=== PATIENT | female | born 1985 | race African-American/Black ===

== ENCOUNTER 2016-07-29 05:04 | Day surgery (SDC) | payer OTHER ==
[2016-07-22 13:37] VITALS: BMI 31.5
--- NOTE | 2016-07-29 04:43 | HP ---
History & Physical Update - History History: No Change - Physical Physical: No Change - Assessment Assessment: No Change - Plan Plan: No Change
[~2016-07-29 05:04] MED LIST: ACETAMINOPHEN 325 MG TABLET (FP) PO PRN; IBUPROFEN 400 MG TABLET (FP) PO PRN
[2016-07-29] MEDS ORDERED: SUCCINYLCHOLINE CHLORIDE 200 MG/10 ML VIAL ONE (07:55)
[2016-07-29] MEDS ORDERED: MIDAZOLAM HCL 2 MG/2 ML SINGLE DOSE VIAL ONE (07:55)
[2016-07-29] MEDS ORDERED: PROPOFOL 20 ML ONE (07:55)
[2016-07-29] MEDS ORDERED: ROCURONIUM BROMIDE 50 MG/5 ML VIAL ONE (07:58)
[2016-07-29] MEDS ORDERED: DEXAMETHASONE SOD PHOSPHATE 4 MG/1 ML VIAL ONE (08:18)
[2016-07-29] MEDS ORDERED: ceFAZolin SODIUM 1 GM VIAL ONE (08:20)
[2016-07-29] MEDS ORDERED: ceFAZolin SODIUM 1 GM VIAL IVPB ONE (08:25)
[2016-07-29] MEDS ORDERED: KETOROLAC TROMETHAMINE 30 MG/1 ML VIAL ONE (08:41)
[2016-07-29] MEDS ORDERED: GLYCOPYRROLATE 0.2 MG/1 ML VIAL ONE (08:58)
[2016-07-29] MEDS ORDERED: NEOSTIGMINE METHYLSULFATE 0.5 MG/ML - 10 ML MDV ONE (08:58)
--- NOTE | 2016-07-29 09:29 | OP ---
Operative Note - Note: Operative Date: 07/29/16 Pre-Operative Diagnosis: voluntary sterilization Operation: bilateral laparoscopic salpingectomy Surgeon: Jesusita Romero [employer] Coach: Sunshine Orlando Anesthesiologist/RICE DRYER MECHANIC: Isrrael Torres Anesthesia: General Specimens Removed: bilateral fallopian tube Estimated Blood Loss (mls): 20 Drains, Volume Out (mls): 75 (pagan) Fluid Volume Replaced (mls): 1,100 Operative Report Dictated: Yes
[2016-07-29] MEDS ORDERED: PROMETHAZINE HCL 25 MG/1 ML VIAL IVPUSH PRN (09:32)
[2016-07-29] MEDS ORDERED: oxyCODONE HCL 5 MG TABLET PO PRN (09:32)
--- NOTE | 2016-07-29 09:34 | SURG ---
Surgery Resident Assistant Note Resident Assistant: Sunshine Orlando PA-C Date of Service: 07/29/16 Diagnosis: voluntary sterilization Procedure: bilateral laparoscopic salpingectomy I was present for the entirety of the operative procedure. For further detail, please refer to operative report. Visit type - Case Type Case Type: Scheduled Admission - Emergency Emergency Visit: No - New patient This patient is new to me today: Yes Date on this admission: 07/29/16 - Critical Care Critical Care patient: No
[2016-07-29] MEDS ORDERED: LACTATED RINGERS SOLUTION 1,000 ML IV SCH (09:45)
[2016-07-29 11:19] VITALS: TEMP 98
[2016-07-29] MEDS ORDERED: oxyCODONE HCL 5 MG TABLET ONE (12:36)
[2016-07-29 14:07] VITALS: BP 110/73; PULSE 97
--- NOTE | 2016-07-30 13:15 | OP ---
DATE OF OPERATION: 07/29/2016 PREOPERATIVE DIAGNOSIS: Voluntary sterilization. OPERATION: Laparoscopic bilateral salpingectomy. SURGEON: Malcolm Harrison MD SECURITY ATTENDANT: AURELIO Gordillo ANESTHESIOLOGIST: Isrrael Torres MD ANESTHESIA: General. SPECIMEN REMOVED: Bilateral fallopian tubes. Normal tubes and ovaries seen. Some liver adhesions noted. ESTIMATED BLOOD LOSS: 20 mL. PROCEDURE: The patient was taken to the operating room, placed in dorsal lithotomy position, prepped and draped in usual sterile fashion. A timeout was performed in accordance with hospital regulation. De La Rosa catheter was inserted into the bladder. Attention was then drawn to the umbilicus where a 5-mm umbilical incision was made. Veress needle was inserted into the cavity. Approximately 3-4 L was insufflated in the cavity. Two incisions were made in the left lower abdomen and right lower abdomen. Under direct visualization trocars were inserted. A grasper and LigaSure were then introduced, and left tube was grasped, and cautery of the left fallopian tube down to the isthmic area of the uterus was then done. Tube was then removed. Right tube was then grasped and LigaSure was used to cauterize and cut the fallopian tube on the right side. That fallopian tube was removed. Hemostasis was achieved. Estimated blood loss 20 mL. All instruments were removed. CO2 was removed from the abdomen. Incisions were then closed using 4-0 Biosyn suture in a subcuticular fashion. Wound was washed and dressed. Patient tolerated the procedure well. MALCOLM HARRISON M.D. [id number]
--- NOTE | 2016-07-30 14:03 | PATH ---
Surgical Pathology Report Patient Name: VIOLETA ONOFRE [facility]. Rec. #: [id number] /Age/Gender: 1985 (Age: 31) / F Account: [id number] Location: [facility] SURGICAL Taken: 07/29/2016 Received: 07/29/2016 Reported: 07/30/2016 Physicians: Jesusita Romero M.D. Specimen(s) Received A: RIGHT FALLOPIAN TUBE B: LEFT FALLOPIAN TUBE Clinical History Voluntary sterilization Final Diagnosis A. RIGHT FALLOPIAN TUBE, SALPINGECTOMY: FULL LUMINAL PORTION OF FALLOPIAN TUBE, INCLUDING FIMBRIATED END. B. LEFT FALLOPIAN TUBE, SALPINGECTOMY: FULL LUMINAL PORTION OF FALLOPIAN TUBE, INCLUDING FIMBRIATED END. BENIGN SEROUS PARATUBAL CYST PRESENT. Electronically Signed Humphrey Diaz M.D. Gross Description A. Received in formalin labeled "right fallopian tube," is a 5.8 cm in length fimbriated portion of fallopian tube. The outer surface is weiss-pink and smooth. Sectioning reveals an unremarkable lumen. Mash Preparatory Operator sections are submitted in 2 cassettes as follows: 1-fimbria; 3-mohum-zwiefpgr of fallopian tube. B. Received in formalin labeled "left fallopian tube," is a 9 cm in length fimbriated portion of fallopian tube. There is a 1.0 cm in greatest dimension paratubal cyst attached to the fimbria. The outer surface of the fallopian tube is weiss-pink and smooth. Sectioning reveals an unremarkable lumen. Mash Preparatory Operator sections are submitted in 2 cassettes as follows: 1-fimbria with paratubal cyst; 5-hwcfy-tgpdswex of fallopian tube. /07/29/2016 [facility]07/29/2016
== END 2016-07-29 14:28 | disposition home or self-care (01) ==
LOC: JASU-SURG 05:04
PROVIDERS: ATTEND Obstetrics & Gynecology
PROC: 0U574ZZ Destruction of Bilateral Fallopian Tubes, Percutaneous Endoscopic Approach (ICD-10-PCS; principal; 2016-07-29 08:00)
DX: Z30.2 Encounter for sterilization (principal)
CPT/HCPCS: 84703; 88302-TC; 94760

== ENCOUNTER 2017-06-23 22:15 | Emergency (ER) | payer OTHER ==
[2017-06-23 22:39] VITALS: BP 123/63; PULSE 117; BMI 36.1
--- NOTE | 2017-06-23 22:52 | PDOC ---
History of Present Illness - General Chief Complaint: Cold Symptoms Stated Complaint: HEADACHE/PAIN Time Seen by Provider: 06/23/17 22:45 History Source: Patient - History of Present Illness Initial Comments: 06/23/17 23:04 Best Contact: Pmhx:N/A Pshx: B/L tubal ligation Allergies: NKDA LMP: 06/18/2017 06/24/17 00:20 32-year-old female presents to the emergency department complaining of sore throat, general malaise, frontal forehead headache, fever/chills for approximately 42 hours. Patient's been taken Tylenol with somewhat relief. Last dose 1600 hrs. today. Patient denies dizziness, lightheadedness, facial pains, rhinorrhea, nasal congestion, earaches, neck pain/stiffness, back pains, chest pain, shortness of breath, cough, abdominal pains, urinary symptoms. Patient states she's having difficulty swallowing due to the pain and hasn't been drinking enough fluids today. 06/24/17 00:22 Timing/Duration: reports: other (x2d) Past History - Past Medical History Allergies/Adverse Reactions: Allergies Allergy/AdvReac Type Severity Reaction Status Date / Time No Known Drug Allergies Allergy Verified 03/09/17 16:32 Home Medications: Ambulatory Orders Oseltamivir Phosphate [Tamiflu Oral Suspension -] 75 mg PO BID #112.5 ml Anemia: Yes Asthma: No Cancer: No Cardiac Disorders: No CVA: No COPD: No CHF: No DVT: No Dementia: No Diabetes: No GI Disorders: No Disorders: No HTN: No Hypercholesterolemia: No Liver Disease: No Seizures: No Thyroid Disease: No - Reproductive History Therapeutic (s) & number: Yes - Immunization History Td Vaccination: Yes TDAP Vaccination: Yes Immunization Up to Date: Yes - Suicide/Smoking/Psychosocial Hx Smoking Status: No Smoking History: Never smoked Have you smoked in the past 12 months: No Number of Cigarettes Smoked Daily: 0 Information on smoking cessation initiated: No Hx Alcohol Use: No Drug/Substance Use Hx: No Substance Use Type: None Hx Substance Use Treatment: No Review of Systems - Review of Systems Able to Perform ROS?: Yes Comments:: 06/23/17 22:59 CONSTITUTIONAL: +fever/chills, generalized weakness, malaise Absent:diaphoresis, loss of appetite HEENT: +throat pain Absent: rhinorrhea, nasal congestion, throat swelling, difficulty swallowing, mouth swelling, ear pain, eye pain, visual Changes CARDIOVASCULAR: Absent: chest pain, loss of consciousness, palpitations, irregular heart rate, peripheral edema RESPIRATORY: Absent: cough, shortness of breath, dyspnea with exertion, orthopnea, wheezing, stridor, hemoptysis GASTROINTESTINAL: Absent: abdominal pain, abdominal distension, nausea, vomiting, diarrhea, constipation, melena, hematochezia GENITOURINARY: Absent: dysuria, frequency, urgency, hesitancy, hematuria, flank pain, genital pain MUSCULOSKELETAL: Absent: myalgia, arthralgia, joint swelling SKIN: Absent: rash, itching, pallor HEMATOLOGIC/IMMUNOLOGIC: Absent: easy bleeding, easy bruising, lymphadenopathy, frequent infections ENDOCRINE: Absent: unexplained weight gain, unexplained weight loss, heat intolerance, cold intolerance NEUROLOGIC: Absent: headache, focal weakness or paresthesias, dizziness, unsteady gait, seizure, mental status changes, bladder or bowel incontinence Is the patient limited Polish proficient: No *Physical Exam - Vital Signs Last Vital Signs Temp Pulse Resp BP Pulse Ox 102.4 F H 117 H 20 123/63 99 06/23/17 22:38 06/23/17 22:38 06/23/17 22:38 06/23/17 22:38 06/23/17 22:38 - Physical Exam Comments: 06/23/17 22:59 GENERAL: Well developed, well nourished. Awake and alert. No acute distress. HEENT: Tonsil: erythematous/exudates Normocephalic, atraumatic. PERRLA, EOMI. No conjunctival pallor. Sclera are non- icteric. Moist mucous membranes. NECK: Supple. Full ROM. No JVD. Carotid pulses 2+ and symmetric, without bruits. No thyromegaly. No lymphadenopathy. CARDIOVASCULAR: Regular rate and rhythm. No murmurs, rubs, or gallops. Distal pulses are 2+ and symmetric. PULMONARY: No evidence of respiratory distress. Lungs clear to auscultation bilaterally. No wheezing, rales or rhonchi. ABDOMINAL: Soft. Non-tender. Non-distended. No rebound or guarding. No organomegaly. Normoactive bowel sounds. MUSCULOSKELETAL Normal range of motion at all joints. No bony deformities or tenderness. No CVA tenderness. EXTREMITIES: No cyanosis. No clubbing. No edema. No calf tenderness. SKIN: Warm and dry. Normal capillary refill. No rashes. No jaundice. NEUROLOGICAL: Alert, awake, appropriate. Cranial nerves 2-12 intact. No deficits to light touch and temperature in face, upper extremities and lower extremities. No motor deficits in the in face, upper extremities and lower extremities. Normoreflexic in the upper and lower extremities. Normal speech. Toes are down- going bilaterally. Gait is normal without ataxia. PSYCHIATRIC: Cooperative. Good eye contact. Appropriate mood and affect. Medical Decision Making - Medical Decision Making 06/23/17 23:03 32-year-old female comes in complaining of sore throat, general malaise, fever Tmax 103.0. Patient took Tylenol at 6000 hours today with minimal relief. Patient given normal saline IV fluids, firm F1 gram, Tamiflu 12.5 mL/75 mg. Most consistent with influenza and will treat with Tamiflu *DC/Admit/Observation/Transfer Diagnosis at time of Disposition: Influenza, Strep pharyngitis Fever Qualifiers: Fever type: unspecified Qualified Code(s): R50.9 - Fever, unspecified - Discharge Dispostion Condition at time of disposition: Stable Admit: No - Prescriptions Prescriptions: Oseltamivir Phosphate [Tamiflu Oral Suspension -] 75 mg PO BID #112.5 ml - Referrals Referrals: Trae Solares MD [Primary Care Provider] - - Patient Instructions Printed Discharge Instructions: Influenza, DI for Strep Throat, DI for Fever ( Symptom) -- Adult Additional Instructions: Increase fluids Tylenol alternating with Motrin as needed for fever/pain Gargle with salt water Follow up with your physician within 48 hours Return to the ER for severe/persistent/worsening symptoms Take your Tamiflu as directed until complete - Post Discharge Activity
[2017-06-23] MEDS ORDERED: ACETAMINOPHEN 1000 MG/100 ML VIAL (NON FORMULARY) IVPB ONE (22:53)
[2017-06-23] MEDS ORDERED: IBUPROFEN 400 MG TABLET (FP) PO ONE (22:53)
[2017-06-23] MEDS ORDERED: OSELTAMIVIR PHOSPHATE 75 MG CAPSULE PO ONE (22:54)
[2017-06-23] MEDS ORDERED: SODIUM CHLORIDE 1,000 ML IV STA (22:54)
[2017-06-23] MEDS ORDERED: OSELTAMIVIR PHOSPHATE 6 MG/1 ML PO ONE (22:56)
[2017-06-23] MEDS ORDERED: ACETAMINOPHEN INJECTION 100 ML IVPB ONE (22:58)
[2017-06-23] MEDS ORDERED: PENICILLIN G BENZATHINE 1,200,000 UNIT/2 ML PFS IM ONE (23:17)
[2017-06-23] MEDS ORDERED: PENICILLIN G BENZATHINE 2,400,000 UNIT/4 ML PFS ONE (23:51)
[2017-06-24] MEDS ORDERED: DEXAMETHASONE SOD PHOSPHATE 10 MG/1 ML VIAL IM ONE (00:20)
[2017-06-24 00:22] VITALS: TEMP 100
[2017-06-24] MEDS ORDERED: DEXAMETHASONE SOD PHOSPHATE 10 MG/1 ML VIAL ONE (00:24)
== END 2017-06-24 01:35 | disposition home or self-care (01) ==
LOC: JERFT 22:15
PROC: 3E0233Z Introduction of Anti-inflammatory into Muscle, Percutaneous Approach (ICD-10-PCS; principal; 2017-06-23)
PROC: 3E02329 Introduction of Other Anti-infective into Muscle, Percutaneous Approach (ICD-10-PCS; 2017-06-23)
PROC: 3E0337Z Introduction of Electrolytic and Water Balance Substance into Peripheral Vein, Percutaneous Approach (ICD-10-PCS; 2017-06-23)
PROC: 3E033NZ Introduction of Analgesics, Hypnotics, Sedatives into Peripheral Vein, Percutaneous Approach (ICD-10-PCS; 2017-06-23)
DX: J02.0 Streptococcal pharyngitis (principal); B95.0 Streptococcus, group A, as the cause of diseases classified elsewhere; J11.1 Influenza due to unidentified influenza virus with other respiratory manifestations
CPT/HCPCS: 87070; 87077; 87430; 99281-25; G9019; J1100